=== PATIENT | female | born 1985 | race Two or more races ===

== ENCOUNTER 2021-12-09 11:54 | Emergency (ER) | payer MEDICAID, OTHER ==
[~2021-12-09] VITALS: Ht 154.9 cm; Wt 80.0 kg
[2021-12-09 12:24] VITALS: BP 148/87
[2021-12-09 13:07] LABS: Urine Bacteria NONE SEEN /hpf (None Seen); Urine Blood 3+ /uL (Negative); Urine Specific Gravity 1.015 (1.001-1.035); Urine WBC <1 /hpf (0 - 5)
[2021-12-09 13:24] LABS: Basophils # (auto) 0.1 10 ^3/uL (0-0.2); Basophils % (auto) 1.1 % (0.0-2.0); Eosinophils # (auto) 0.2 10 ^3/uL (0-0.8); Eosinophils % (auto) 2.6 % (0.0-7.0); Hematocrit 37.5 % (36.0-46.0); Hemoglobin 12.6 g/dL (12.2-16.2); Lymphocytes % (auto) 30.6 % (10.0-50.0); Mean Corpuscular Hemoglobin 29.3 pg (28.0-32.0); Mean Corpuscular Hgb Conc. 33.5 g/dL (32.0-36.0); Mean Corpuscular Volume 87.4 fL (80.0-100.0); Monocytes # (auto) 0.4 10 ^3/uL (0-1.3); Monocytes % (auto) 5.6 % (0.0-12.0); Neutrophils % (auto) 60.1 % (37.0-80.0); Nucleated Red Blood Cells % 0.1 %; Red Blood Cells 4.29 10^6/uL (4.0-5.20); Red Cell Distribution Width 13.9 % (11.8-14.3); White Blood Cell 6.6 10^3/uL (4.4-10.8)
[2021-12-09 13:28] LABS: Albumin 3.5 g/dL (3.4-5.0); BUN/Creatinine Ratio 13.8; Calcium 8.7 mg/dL (8.5-10.1); Potassium 3.6 mmol/L (3.5-5.1)
[2021-12-09 13:31] LABS: Bilirubin, Total 0.1 mg/dL (0.2-1.0); Total Protein 6.7 g/dL (6.4-8.2)
== END 2021-12-09 14:32 | disposition home or self-care (01) ==
LOC: ER 11:54
DX: N93.9 Abnormal uterine and vaginal bleeding, unspecified (principal); Z88.0 Allergy status to penicillin
CPT/HCPCS: 36415; 80053; 81001; 84702; 85025

== ENCOUNTER 2023-12-01 16:02 | Emergency (ER) | payer MEDICAID ==
[~2023-12-01] VITALS: Ht 154.9 cm; Wt 77.3 kg
[2023-12-01 18:16] VITALS: BP 139/84; PULSE 95; RESP 18; TEMP 98.1; O2SAT 96
[2023-12-01] MEDS ORDERED: IBUP-1456 PO (18:37)
== END 2023-12-01 18:44 | disposition home or self-care (01) ==
LOC: ER 16:02
DX: S93.492A Sprain of other ligament of left ankle, initial encounter (principal); Z88.0 Allergy status to penicillin; Z79.899 Other long term (current) drug therapy; W20.8XXA Other cause of strike by thrown, projected or falling object, initial encounter; Y93.89 Activity, other specified; Y92.89 Other specified places as the place of occurrence of the external cause; Y99.8 Other external cause status
CPT/HCPCS: 73610

== ENCOUNTER 2024-12-28 13:23 | Inpatient (IN) | payer MEDICAID ==
[~2024-12-28] VITALS: Ht 162.6 cm; Wt 75.0 kg
[~2024-12-28 13:23] MED LIST: IBUP-1456 PO
--- NOTE | 2024-12-28 13:29 | ED.PDOC ---
HPI Comments This is a 39 year old female SHERIF presenting to the ED with chief complaint of chest pain. Patient reports that she started to suddenly experience 8/10 left sided sharp chest pain at work at 1215. Patient relays that her pain is increased with deep inspiration. EMS states patient's diastolic blood pressure was noted to be over 112 and continues to be elevated. EMS notes they provided a dose of Nitroglycerin and Aspirin for the patient en route to the ED. Patient reports her pain has only improved to a 7/10 after the medication was given. Patient denies any SOB, dizziness, headache, N/V, or syncope. Time Seen by MD: 13:26 Primary Care Provider: JABARI Reviewed Notes: Nurses Notes, Packaging Inspector Notes, Medications, Allergies Allergies: Coded Allergies: Penicillins (Verified Allergy, Severe, 12/09/21) Home Meds Active Scripts Ibuprofen (Ibuprofen) 800 Mg Tab, 1 TAB PO TID PRN, #30 TAB 0 Refills Prov:MANUELITONITIN 12/01/23 Information Source: Patient, Emergency Med Personnel Mode of Arrival: EMS Severity: Moderate Timing: Hours Duration: Since onset Prehospital treatment: None Location: Chest (L) Radiation: No Radiation Quality: Sharp Onset: At Rest Cardiac Risk Factors: None PE Risk Factors: None History of: None Past Medical History PAST MEDICAL HISTORY: Denies Surgical History: Denies all surgeries [employer] History: No Pertinent [employer]ATE History Family History Family History: Unknown Social History Smoker: Non-Smoker Alcohol: Denies ETOH Use Drugs: Denies Drug Use Lives In: Home Constitutional: denies: chills, diaphoresis, fatigue, fever, malaise, sweats, weakness, others EENTM: denies: blurred vision, double vision, ear bleeding, ear discharge, ear drainage, ear pain, ear ringing, eye pain, eye redness, hearing loss, mouth pain, mouth swelling, nasal discharge, nose bleeding, nose congestion, nose pain, photophobia, tearing, throat pain, throat swelling, voice changes, others Respiratory: denies: cough, hemoptysis, orthopnea, SOB at rest, shortness of breath, SOB with excertion, stridor, wheezing, others Cardiovascular: reports: chest pain; denies: dizzy spells, diaphoresis, Dyspnea on exertion, edema, irregular heart beat, left arm pain, lightheadedness, palpitations, PND, syncope, others Gastrointestinal: denies: abdomen distended, abdominal pain, blood streaked bowels, constipated, diarrhea, dysphagia, difficulty swallowing, hematemesis, melena, nausea, poor appetite, poor fluid intake, rectal bleeding, rectal pain, vomiting, others Genitourinary: denies: abnormal vagina bleeding, burning, dyspareunia, dysuria, flank pain, frequency, hematuria, incontinence, pain, , vagina discharge, urgency, others Neurological: denies: dizziness, fainting, headache, left sided numbness, left sided weakness, numbness, paresthesia, pre-existing deficit, right sided numbness, right sided weakness, seizure, speech problems, tingling, tremors, weakness, others Musculoskeletal: denies: back pain, gout, joint pain, joint swelling, muscle pain, muscle stiffness, neck pain, others Integumetry: denies: bruises, change in color, change in hair/nails, dryness, laceration, lesions, lumps, rash, wounds, others Allergic/Immunocompromised: denies: Difficulty Healing, Frequent Infections, Hives, Itching, others Hematologic/Lymphatic: denies: anemia, blood clots, easy bleeding, easy bruising, swollen glands, others Endocrine: denies: excessive hunger, excessive sweating, excessive thirst, excessive urination, flushing, intolerance to cold, intolerance to heat, unexplained weight gain, unexplained weight loss, others Psychiatric: denies: anxiety, bipolar disorder, depression, hopeless, panic disorder, schizophrenia, sleepless, suicidal, others All Other Systems: Reviewed and Negative Physical Exam General Appearance: Moderate Distress HEENT: Normal ENT Inspection, Pharynx Normal, TMs Normal Neck: Full Range of Motion, Non-Tender, Normal, Normal Inspection Respiratory: Chest Non-Tender, Lungs Clear, No Accessory Muscle Use, No Respiratory Distress, Normal Breath Sounds Cardiovascular: No Edema, No JVD, No Murmur, No Gallop, Normal Peripheral Pulses, Regular Rate/Rhythm Breast Exam: Deferred Gastrointestinal: No Organomegaly, Non Tender, No Pulsatile Mass, Normal Bowel Sounds, Soft Genitalia: Deferred Pelvic: Deferred Rectal: Deferred Extremities: No calf tenderness, Normal capillary refill, Normal inspection, Normal range of motion, Non-tender, No pedal edema Musculoskeletal : Apperance: Normal Neurologic: Alert, multimedia teacher II-XII nml as Tested, No Motor Deficits, Normal Affect, Normal Mood, No Sensory Deficits Cerebellar Function: Normal Reflexes: Normal Skin: Dry, Normal Color, Warm Lymphatic: No Adenopathy EKG EKG : Pulse Rate (adult): 82 [place]: Normal Cardiac Rhythm: NSR Block: None Hypertrophy: None ST: Normal Was a procedure done? Was a procedure done?: No CP Differential Dx Differential Diagnosis: Angina, [place], PSVT Differential Diagnosis: CHF Differential Diagnosis: Pericarditis X-Ray, Labs, Meds, VS Vital Signs Date Time Temp Pulse Resp B/P (MAP) Pulse Ox O2 Delivery O2 Flow Rate FiO2 12/28/24 14:53 98.1 79 19 163/99 (120) 99 98.1 12/28/24 14:53 78 17 169/93 12/28/24 13:32 97.9 90 16 184/118 97 97.9 12/28/24 13:29 82 12/28/24 13:23 82 Lab Test 12/28/24 14:30 12/28/24 13:39 Range/Units Troponin I High Sensitivity 6 7 </=34 ng/L White Blood Count 7.0 4.4-10.8 10^3/uL Red Blood Count 4.40 4.0-5.20 10^6/uL Hemoglobin 12.1 L 12.2-16.2 g/dL Hematocrit 35.6 L 36.0-46.0 % Mean Corpuscular Volume 80.9 80.0-100.0 fL Mean Corpuscular Hemoglobin 27.5 L 28.0-32.0 pg Mean Corpuscular Hemoglobin Concent 34.0 32.0-36.0 g/dL Red Cell Distribution Width 14.2 11.8-14.3 % Platelet Count 334 140-450 10^3/uL Mean Platelet Volume 8.6 6.9-10.8 fL Neutrophils (%) (Auto) 69.0 37.0-80.0 % Lymphocytes (%) (Auto) 23.8 10.0-50.0 % Monocytes (%) (Auto) 5.1 0.0-12.0 % Eosinophils (%) (Auto) 0.8 0.0-7.0 % Basophils (%) (Auto) 1.3 0.0-2.0 % Neutrophils # (Auto) 4.8 1.6-8.6 10 ^3/uL Lymphocytes # (Auto) 1.7 0.4-5.4 10 ^3/uL Monocytes # (Auto) 0.4 0-1.3 10 ^3/uL Eosinophils # (Auto) 0.1 0-0.8 10 ^3/uL Basophils # (Auto) 0.1 0-0.2 10 ^3/uL Nucleated Red Blood Cells 0.1 % D-Dimer, Quantitative < 0.19 0.0-0.49 mg/L FEU Sodium Level 141 136-145 mmol/L Potassium Level 2.9 L 3.5-5.1 mmol/L Chloride Level 102 98-107 mmol/L Carbon Dioxide Level 31 20-31 mmol/L Anion Gap 8 5-15 Blood Urea Nitrogen 7 L 9-23 mg/dL Creatinine 0.89 0.550-1.02 mg/dL Glomerular Filtration Rate Calc 83 >90 mL/min BUN/Creatinine Ratio 7.9 L 10.0-20.0 Serum Glucose 96 74-106 mg/dL Calcium Level 9.3 8.7-10.4 mg/dL Current Medications Medications (Trade) Dose Ordered Sig/Dao Route Start Time Stop Time Status Last Admin Morphine Sulfate 4 mg ONCE ONCE IV 12/28/24 13:30 12/28/24 13:31 DC 12/28/24 14:53 Ondansetron HCl (Zofran) 4 mg ONCE ONCE IV 12/28/24 13:30 12/28/24 13:31 DC 12/28/24 14:53 IV Hep-Lock was established The patient was seen 4 mg IV push The patient was given Zofran 4 mg IV push The D-dimer is within normal limits The chemistry panel shows a potassium of 2.9. The patient was given potassium 20 mEq as a K rider The patient is being admitted A cardiology consult will be obtained. Images Reviewed?: Images reviewed and evaluated by me Time of 1ST Reevaluation: 18:43 Reevaluation 1ST: Unchanged Patient Education/Counseling: Diagnosis, Treatment, Prognosis Family Education/Counseling: No Family Present SEPSIS Sepsis Screen Physician Orders Chest Portable (12/28/24 13:25) Heplock Iv (12/28/24 13:25) Urinalysis (12/28/24 13:25) Vital Signs Date Time Temp Pulse Resp B/P (MAP) Pulse Ox O2 Delivery O2 Flow Rate FiO2 12/28/24 14:53 98.1 79 19 163/99 (120) 99 98.1 12/28/24 14:53 78 17 169/93 12/28/24 13:32 97.9 90 16 184/118 97 97.9 12/28/24 13:29 82 12/28/24 13:23 82 Laboratory Tests Test 12/28/24 13:39 White Blood Count 7.0 10^3/uL (4.4-10.8) Medications Medications Dose Ordered Sig/Dao Route Start Time Stop Time Status Last Admin Dose Admin Morphine Sulfate 4 mg ONCE ONCE IV 12/28/24 13:30 12/28/24 13:31 DC 12/28/24 14:53 Ondansetron HCl 4 mg ONCE ONCE IV 12/28/24 13:30 12/28/24 13:31 DC 12/28/24 14:53 Departure 1 Departure Time of Disposition: 18:41 Impression: Primary Impression: Acute coronary syndrome Additional Impression: Hypokalemia Disposition: 09 ADMITTED INPATIENT Admit to: Tele Condition: Fair Critical Care Note Critical Care Time?: Yes (45 min-critical care time only) Stability Stability form required: Yes Unstable for transfer: Telemetry monitoring (Telemetry monitoring required), ED Physician Assesment (Clinical assesment) Heart Score Heart Score: Heart Score Response (Comments) Value History Highly Suspicious 2 EKG Normal 0 Age <45 0 Risk Factors No known risk factors 0 Troponin Normal limit 0 Total 2 I personally scribed for CEM LEONARDO MD ([email or web address]) on 12/28/24 at 13:29. Electronically submitted by Gerry Lemus ([email or web address]). CEM LEONARDO MD Dec 28, 2024 13:29
[2024-12-28 13:50] LABS: Hematocrit 35.6 % (36.0-46.0); Hemoglobin 12.1 g/dL (12.2-16.2); Mean Corpuscular Hemoglobin 27.5 pg (28.0-32.0); Mean Corpuscular Volume 80.9 fL (80.0-100.0); Nucleated Red Blood Cells % 0.1 %
[2024-12-28 14:04] LABS: Chloride 102 mmol/L (98-107); Sodium 141 mmol/L (136-145)
[2024-12-28 14:05] LABS: Anion Gap 8 (5-15); Calcium 9.3 mg/dL (8.7-10.4); Carbon Dioxide 31 mmol/L (20-31)
[2024-12-28 14:07] LABS: Potassium 2.9 mmol/L (3.5-5.1)
[2024-12-28 14:10] LABS: BUN/Creatinine Ratio 7.9 (10.0-20.0); Glucose 96 mg/dL (74-106)
[2024-12-28 14:18] LABS: Blood Urea Nitrogen 7 mg/dL (9-23)
--- NOTE | 2024-12-28 14:24 | DVH ---
EXAM: XY CHEST PORTABLE Indication: cp Technique: Single frontal view of the chest was obtained Comparison: None FINDINGS: Lines and Tubes: None Lungs: No focal consolidation. Pleura: No effusion. No pneumothorax. Cardiomediastinal contours: Unremarkable Bones: No acute osseous abnormality. IMPRESSION: No acute cardiopulmonary disease.
--- NOTE | 2024-12-28 14:37 | ECG ---
[facility] Test Date: 2024-12-28 Test Time: 13:21:38 Pat Name: FILIBERTO DURONepartment: Room: [address] [place] [address] Gender: F Veterinary Laboratory Technician: BRENDA : 1985 Requested By: CEM LEONARDO Order Number: [id number] Reading MD: Matt Ding Measurements Intervals [place] Rate: 82 P: 65 NM: 154 QRS: -4 QRSD: 85 T: -8 QT: 404 QTc: 472 Interpretive Statements Sinus rhythm Probable anterior infarct, age indeterminate Electronically Signed On 01-02-2025 19:17:40 PDT by Matt Ding Please click the below link to view image of tracing.
[2024-12-28] MEDS: ONDANSETRON HCL 4 MG/2 ML VIAL IV ONE (14:53)
[2024-12-28] MEDS: MORPHINE SULFATE 4 MG/ML SYR/VIAL IV ONE (14:53)
[2024-12-28] MEDS: LABETALOL HCL 20 MG/4 ML VL IV ONE (23:05)
[2024-12-28] MEDS: NITROGLYCERIN 0.4 MG SL TAB SL ONE (23:12)
[2024-12-28 23:13] VITALS: PULSE 78; RESP 20; O2SAT 96
[2024-12-29] MEDS ORDERED: ONDANSETRON HCL 4 MG/2 ML VIAL IV PRN (00:45)
[2024-12-29] MEDS ORDERED: MORPHINE SULFATE INJ 2 MG/ml SYRG IV PRN ×2 (00:45)
[2024-12-29] MEDS ORDERED: HYDROcodone-ACET 5/325MG TAB PO PRN (00:45)
[2024-12-29] MEDS ORDERED: hydrALAZINE HCL 20 MG/ML VL IV PRN (00:45)
[2024-12-29] MEDS ORDERED: ACETAMINOPHEN 325 MG TAB PO PRN (00:45)
[2024-12-29] MEDS ORDERED: DOCUSATE SOD 100 MG CAP PO PRN (00:45)
[2024-12-29] MEDS ORDERED: NITROGLYCERIN 0.4 MG SL TAB SL PRN (00:45)
--- NOTE | 2024-12-29 00:49 | DVHHP2 ---
History of Present Illness Reason for Visit: Acute chest pain History of Present Illness The patient is a 39-year-old female who denies past medical history presented to [facility] ED with complaint of chest pain. Patient reports she experienced sudden left-sided chest pain, sharp in nature, rating 8/10 numeric scale, increased with deep inspiration, getting worse that prompted this visit. Patient was seen and evaluated in the ED, laboratory data shows WBC 7.0, platelets 334, sodium 141, potassium 2.9, BUN 7, creatinine 0.89, glucose 96, calcium 9.3, troponin 7, blood pressure 184/118 trending down to 169/93, heart rate 78, temperature 97.8 F, O2 saturation 96% on room air. Chest x-ray show no acute cardiopulmonary disease. Please see medication orders section in the computer. On my assessment, patient denied chest pain at this moment, no headache, no dizziness, no diaphoresis, no shortness of breaths, no nausea, no vomiting, no fever, no chills. Patient was admitted for further evaluation and medical management. Past Medical History Denies past medical history Past Surgical History Denies all surgeries Family History Reviewed, noncontributory to the management of this case. Past Social History The patient lives at home, denies smoking, alcohol or illicit drugs abuse. Review of Systems Constitutional: No: Fever, Chills, Sweats, Weakness, Malaise, Other Eyes: No: Pain, Vision change, Conjunctivae inflammation, Eyelid inflammation, Other, Redness ENT: No: Ear pain, Ear discharge, Nose pain, Nose discharge, Nose congestion, Mouth pain, Mouth swelling, Throat pain, Throat swelling, Other Respiratory: No: Cough, Dry, Shortness of breath, SOB with excertion, Wheezing, Hemoptysis, Pleuritic Pain, Sputum, Wheezing, Other Cardiovascular: Chest Pain; No: Palpitations, Orthopnea, Paroxysmal Noc. Dyspnea, Edema, Lt Headedness, Other Gastrointestinal: No: Nausea, Vomiting, Abdominal Pain, Diarrhea, Constipation, Melena, Hematochezia, Other Genitourinary: No Dysuria, No Frequency, No Incontinence, No Hematuria, No Retention, No Other Musculoskeletal: No: other, neck pain, shoulder pain, arm pain, back pain, hand pain, leg pain, foot pain Skin: No: Rash, Lesions, Jaundice, Bruising, Other Neurological: No: Weakness, Numbness, Incoordination, Change in speech, Confusion, Seizures, Other Allergies: Coded Allergies: Penicillins (Verified Allergy, Severe, 12/09/21) Exam Vital Signs Vital Signs Date Time Temp Pulse Resp B/P (MAP) Pulse Ox O2 Delivery O2 Flow Rate FiO2 12/28/24 23:13 78 20 96 Room Air* 0 21 12/28/24 23:12 181/119 12/28/24 22:54 97.8 97.8 General Appearance: Alert, Oriented X3, Cooperative, No acute distress HEENT: Atraumatic, PERRLA, EOMI, Mucous membr. moist/pink Respiratory: Clear to auscultation, Normal air movement Cardiovascular: Regular rate, Normal S1, Normal S2, No murmurs Abdominal: Normal bowel sounds, Soft, No tenderness, No hepatospenomegaly, No masses Extremities: No clubbing, No cyanosis, No edema, Normal pulses, No tenderness/swelling Skin: No rashes, No breakdown, No significant lesion Neuro: Normal gait, Normal speech, Strength at 5/5 X4 ext, Normal tone, Sensation intact, Cranial nerves 3-12 NL, Reflexes 2+ Psych/Mental Status: Mental status NL, Mood NL Labs/Xrays Labs Test 12/28/24 14:30 12/28/24 13:39 Range/Units Troponin I High Sensitivity 6 </=34 ng/L White Blood Count 7.0 4.4-10.8 10^3/uL Red Blood Count 4.40 4.0-5.20 10^6/uL Hemoglobin 12.1 L 12.2-16.2 g/dL Hematocrit 35.6 L 36.0-46.0 % Mean Corpuscular Volume 80.9 80.0-100.0 fL Mean Corpuscular Hemoglobin 27.5 L 28.0-32.0 pg Mean Corpuscular Hemoglobin Concent 34.0 32.0-36.0 g/dL Red Cell Distribution Width 14.2 11.8-14.3 % Platelet Count 334 140-450 10^3/uL Mean Platelet Volume 8.6 6.9-10.8 fL Neutrophils (%) (Auto) 69.0 37.0-80.0 % Lymphocytes (%) (Auto) 23.8 10.0-50.0 % Monocytes (%) (Auto) 5.1 0.0-12.0 % Eosinophils (%) (Auto) 0.8 0.0-7.0 % Basophils (%) (Auto) 1.3 0.0-2.0 % Neutrophils # (Auto) 4.8 1.6-8.6 10 ^3/uL Lymphocytes # (Auto) 1.7 0.4-5.4 10 ^3/uL Monocytes # (Auto) 0.4 0-1.3 10 ^3/uL Eosinophils # (Auto) 0.1 0-0.8 10 ^3/uL Basophils # (Auto) 0.1 0-0.2 10 ^3/uL Nucleated Red Blood Cells 0.1 % D-Dimer, Quantitative < 0.19 0.0-0.49 mg/L FEU Sodium Level 141 136-145 mmol/L Potassium Level 2.9 L 3.5-5.1 mmol/L Chloride Level 102 98-107 mmol/L Carbon Dioxide Level 31 20-31 mmol/L Anion Gap 8 5-15 Blood Urea Nitrogen 7 L 9-23 mg/dL Creatinine 0.89 0.550-1.02 mg/dL Glomerular Filtration Rate Calc 83 >90 mL/min BUN/Creatinine Ratio 7.9 L 10.0-20.0 Serum Glucose 96 74-106 mg/dL Calcium Level 9.3 8.7-10.4 mg/dL PATIENT: FILIBERTO VARELA ACCT: [id number] UNIT: [id number] : 1985 LOC: ER ROOM / BED: / AGE / SEX: 39 / F ADM STATUS: REG ER SERVICE 1325 ORDERING PHYSICIAN: CEM LEONARDO MD PROCEDURE(s): CXRP - CHEST PORTABLE REASON: cp ORDER NUMBER(s): [id number], ACCESSION NUMBER(s): [id number] EXAM: XY CHEST PORTABLE Indication: cp Technique: Single frontal view of the chest was obtained Comparison: None FINDINGS: Lines and Tubes: None Lungs: No focal consolidation. Pleura: No effusion. No pneumothorax. Cardiomediastinal contours: Unremarkable Bones: No acute osseous abnormality. IMPRESSION: No acute cardiopulmonary disease. SEPSIS Sepsis Screen Date sepsis recognized/suspect: Dec 28, 2024 Time Sepsis recognized/suspect: 1320 Recent Procedure: No On Antibiotic Therapy: No Respiratory Rate >20: No Heart Rate >90: No Temp<36 C (96.8 F) or >38.3 C: No SBP <90 or MAP <65 mmHG: No New Acute Mental Status Change: No Is the patient on CPAP, BIPAP,: No Physician Orders Complete Blood Count (12/29/24 04:00) Comprehensive Metabolic Panel (12/29/24 04:00) Amlodipine Tablet (Norvasc Tablet) (12/29/24 00:45) Amlodipine Tablet (Norvasc Tablet) (12/29/24 10:00) Hydralazine Injection (Apresoline Inject (12/29/24 00:45) Metoprolol Tartrate Tablet (Lopressor Ta (12/29/24 10:00) Potassium Er Tablet (Klor-Con Tablet) (12/29/24 00:45) Admit (12/29/24 00:43) Allergies (12/29/24 00:43) Code Status (12/29/24 00:43) Sodium Chloride Lock (Saline Lock Ns) (12/29/24 06:00) Oxygen Per Hour (12/29/24 00:43) Hydrocodone-Acet 5/325mg Tab ([place] 5/32 (12/29/24 00:45) Ondansetron Hcl (Zofran) (12/29/24 00:45) Docusate Sodium Capsule (Colace Capsule) (12/29/24 00:45) Complete Blood Count (12/30/24 04:00) Comprehensive Metabolic Panel (12/30/24 04:00) Cardiac Diet-2gna,Lofat,Lochol (12/29/24 Breakfast) Condition: Serious (12/29/24 00:43) Acetaminophen Tablet (Tylenol Tablet) (12/29/24 00:45) Bedrest With Bathroom Privileg (12/29/24 00:43) Morphine Sulfate Injection (12/29/24 00:45) Sequential Compression Device (12/29/24 ) Nitroglycerin Sublingual (Ntrostat Subli (12/29/24 00:45) Morphine Sulfate Injection (12/29/24 00:45) Stat Ekg For Chest Pain (12/29/24 00:43) Notify Md Of Changes From Base (12/29/24 00:43) Rn Shift Mgr For 24 Hours (12/29/24 00:43) Emergency Dysrhythmia Protocol (12/29/24 00:43) Rhythm Strips Once Every Shift (12/29/24 00:43) Oxygen By Nasal Cannula (12/29/24 00:43) Vital Signs Date Time Temp Pulse Resp B/P (MAP) Pulse Ox O2 Delivery O2 Flow Rate FiO2 12/28/24 23:13 78 20 96 Room Air* 0 21 12/28/24 23:12 181/119 12/28/24 23:05 78 181/119 12/28/24 22:54 97.8 78 16 181/119 (139) 98 97.8 Laboratory Tests Test 12/28/24 13:39 White Blood Count 7.0 10^3/uL (4.4-10.8) Medications Medications Dose Ordered Sig/Dao Route Start Time Stop Time Status Last Admin Dose Admin Labetalol HCl 5 mg ONCE ONCE IV 12/28/24 23:00 12/28/24 23:01 DC 12/28/24 23:05 5 MG Morphine Sulfate 4 mg ONCE ONCE IV 12/28/24 13:30 12/28/24 13:31 DC 12/28/24 14:53 4 MG Nitroglycerin 0.4 mg ONCE ONCE SL 12/28/24 23:15 12/28/24 23:16 DC 12/28/24 23:12 0.4 MG Ondansetron HCl 4 mg ONCE ONCE IV 12/28/24 13:30 12/28/24 13:31 DC 12/28/24 14:53 4 MG Assessment/Plan Assessment/Plan Acute coronary syndrome Hypokalemia Hypertensive urgency Plan 1. Admit to telemetry unit 2. Breathing treatment 3. Pain control management 4. Management of fluids and electrolytes 5. Consultation for hospitalist 6. Diagnostic tests chest x-ray 7. DVT prophylaxis on SCDs 8. Repeat labs CBC, CMP in a.m. 9. Continue with current medical management 10. Treatment plan discussed with patient and RN. Patient verbalized understanding. Plan discussed with: Patient, Other (RN) My Orders Orders - LINNEA FRANCO DNP Procedure Category Date Status Time Complete Blood Count LAB 12/29/24 Transmitted 04:00 Comprehensive LAB 12/29/24 Transmitted Metabolic Panel 04:00 Amlodipine Tablet PHA 12/29/24 Transmitted (Norvasc Tablet) 00:45 Amlodipine Tablet PHA 12/29/24 Transmitted (Norvasc Tablet) 10:00 Hydralazine Injection PHA 12/29/24 Transmitted (Apresoline Inject 00:45 Metoprolol Tartrate PHA 12/29/24 Verified Tablet (Lopressor Ta 10:00 Potassium Er Tablet [facility] 12/29/24 Verified (Klor-Con Tablet) 00:45 Admit ADMIT 12/29/24 Verified 00:43 Allergies [facility] 12/29/24 Verified 00:43 Code Status CODE 12/29/24 Verified 00:43 Sodium Chloride Lock PHA 12/29/24 Verified (Saline Lock Ns) 06:00 Oxygen Per Hour RT 12/29/24 Verified 00:43 Hydrocodone-Acet PHA 12/29/24 Verified 5/325mg Tab ([place] 00:45 Ondansetron Hcl [facility] 12/29/24 Verified (Zofran) 00:45 Docusate Sodium [facility] 12/29/24 Verified Capsule (Colace 00:45 Complete Blood Count LAB 12/30/24 Verified 04:00 Comprehensive LAB 12/30/24 Verified Metabolic Panel 04:00 Cardiac DIET 12/29/24 Verified Diet-2gna,Lofat,Lochol Breakfast Condition: Serious [facility] 12/29/24 Verified 00:43 Acetaminophen Tablet [facility] 12/29/24 Verified (Tylenol Tablet) 00:45 Bedrest With Bathroom [facility] 12/29/24 Verified Privileg 00:43 Morphine Sulfate [facility] 12/29/24 Verified Injection 00:45 Sequential [facility] 12/29/24 Verified Compression Device Nitroglycerin [facility] 12/29/24 Verified Sublingual (Ntrostat 00:45 Morphine Sulfate [facility] 12/29/24 Verified Injection 00:45 Stat Ekg For Chest [facility] 12/29/24 Verified Pain 00:43 Notify Md Of Changes [facility] 12/29/24 Verified From Base 00:43 Rn Shift Mgr For [facility] 12/29/24 Verified 24 Hours 00:43 Emergency Dysrhythmia [facility] 12/29/24 Verified Protocol 00:43 Rhythm Strips Once [facility] 12/29/24 Verified Every Shift 00:43 Oxygen By Nasal RT 12/29/24 Verified Cannula 00:43 Problem List: (1) Acute coronary syndrome (2) Hypokalemia (3) Hypertensive urgency Date of Service: Dec 29, 2024 Billing Provider: LINNEA FRANCO DNP Common Visit Codes: [id number] INP/OBS CARE (HIGH) LINNEA FRANCO DNP Dec 29, 2024 00:49
[2024-12-29 01:02] VITALS: BP 148/73; PULSE 68; RESP 18; TEMP 98.7; O2SAT 98
[2024-12-29] MEDS: POTASSIUM CHL 20 Meq TABLET PO ONE (01:04)
[2024-12-29] MEDS ORDERED: SODIUM CHLOR 0.9% PF (SALINE LOCK) 10ML VIAL/SYR IV SCH (06:00)
[2024-12-29] MEDS ORDERED: METOPROLOL TARTRATE 25 MG TAB PO SCH (10:00)
== END 2024-12-29 03:02 | disposition left against medical advice (07) | DRG 198 ==
LOC: ER 13:23 → EDBD 13:23 → OVERFLOW 12-29 00:43
PROVIDERS: ADMIT Nurse Practitioner Family; ATTEND Nurse Practitioner Family
DX: I24.9 Acute ischemic heart disease, unspecified (principal); I16.0 Hypertensive urgency; E87.6 Hypokalemia; Z88.0 Allergy status to penicillin; Z53.29 Procedure and treatment not carried out because of patient's decision for other reasons
CPT/HCPCS: 36415; 71045; 80048; 84484; 85025; 85379; 93005; 96374; 96375; 99291; G0378; J2405